=== PATIENT | female | born 1995 | race Caucasian/White ===

== ENCOUNTER → 2017-12-03 | Emergency (ER) | payer OTHER ==
[~2017-12-03] VITALS: Ht 157.5 cm; Wt 61.2 kg
== END | disposition home or self-care (01) ==
LOC: ER 20:30
DX: S62.524A Nondisplaced fracture of distal phalanx of right thumb, initial encounter for closed fracture (principal); W23.0XXA Caught, crushed, jammed, or pinched between moving objects, initial encounter; Y93.89 Activity, other specified; Y92.098 Other place in other non-institutional residence as the place of occurrence of the external cause; Y99.8 Other external cause status

== ENCOUNTER 2019-04-14 13:09 | Emergency (ER) | payer OTHER ==
[~2019-04-14] VITALS: Ht 165.1 cm; Wt 63.5 kg
== END 2019-04-14 21:31 | disposition home or self-care (01) ==
LOC: ER 13:09
DX: S50.11XA Contusion of right forearm, initial encounter (principal); W18.09XA Striking against other object with subsequent fall, initial encounter; Y93.89 Activity, other specified; Y92.89 Other specified places as the place of occurrence of the external cause; Y99.8 Other external cause status

== ENCOUNTER → 2020-01-23 | Outpatient (CLI) | payer OTHER | END | disposition home or self-care (01) | LOC: PRENATAL 11:00 | DX: O35.3XX1 Maternal care for (suspected) damage to fetus from viral disease in mother, fetus 1 (principal); O35.0XX1 Maternal care for (suspected) central nervous system malformation in fetus, fetus 1 ==

== ENCOUNTER → 2021-09-09 | Emergency (ER) | payer OTHER ==
[~2021-09-09] VITALS: Ht 160 cm; Wt 65.8 kg
== END | disposition home or self-care (01) ==
LOC: ER 16:42
DX: T78.40XA Allergy, unspecified, initial encounter (principal)

== ENCOUNTER 2025-02-24 17:19 | Outpatient (CLI) | payer OTHER ==
[~2025-02-24] VITALS: Ht 157.5 cm; Wt 83.5 kg
[2025-02-24 17:31] VITALS: BP 133/81
[2025-02-24] MEDS ORDERED: CHILDREN'S ASPI81 MG PO (17:41)
[2025-02-24] MEDS ORDERED: PRENATAL TABLE1 EAC4 PO (17:41)
[2025-02-24] MEDS ORDERED: RINGERS SOLUTION,LACTATED 1,000 ML IV SCH (17:45)
[2025-02-24 18:00] LABS: HEMATOCRIT 39.3 % (36.0-45.00); HEMOGLOBIN 13.8 g/dL (12.0-15.00); MEAN CELL VOLUME 88.8 fL (80.00-100.00); MEAN CORPUSCULAR HEMOGLOBIN 31.2 pg (27.00-32.0); MEAN CORPUSCULAR HGB CONC 35.2 g/dl (32.0-36.0); PLATELET COUNT 279 K/uL (150-450); RED BLOOD COUNT 4.42 M/uL (4.00-6.00); RED CELL DISTRIBUTION WIDTH 13.4 % (11.5-14.5)
[2025-02-24 18:01] LABS: URINE APPEARANCE Clear; URINE BILIRRUBIN Negative (NEGATIVE); URINE BLOOD Negative; URINE COLOR Yellow; URINE GLUCOSE Negative (NEGATIVE); URINE KETONE Negative (NEGATIVE); URINE LEUKOCYTE Trace; URINE NITRATE Negative; URINE PROTEIN Negative (NEGATIVE); URINE UROBILINOGEN 0.2 E.U./dl
[2025-02-24 18:04] LABS: URINE BACTERIA 1250.8 uL (0.0-1933); URINE EPITHELIAL CELLS 47.4 uL (0.0-38.8); URINE RBC 3.9 uL (0.0-20.8); URINE WBC 29.1 uL (0.0-23.2)
[2025-02-24 18:10] LABS: URINE CAST 0.14 uL (0.0-1.40)
[2025-02-24 18:17] LABS: INR 0.95; PARTIAL THROMBOPLASTIN TIME 27.6 SECONDS (22.0-34.0); PROTHROMBIN TIME 10.4 SECONDS (9.0-11.5)
[2025-02-24 18:21] LABS: ALBUMIN 3.2 gm/dL (3.4-5.0); BILIRUBIN TOTAL 0.24 mg/dL (0.3-1.2); CREATININE SERUM 0.44 mg/dL (0.55-1.02); GFR 170.26; GLOBULINA 3.6 G/DL (2.4-3.5); POTASSIUM 3.81 mEq/L (3.5-5.1); TOTAL PROTEIN 6.8 gm/dL (6.4-8.2)
[2025-02-24 20:00] VITALS: BP 131/87
[2025-02-24 23:41] VITALS: BP 115/73
[2025-02-25 03:14] VITALS: BP 126/86
[2025-02-25 06:33] VITALS: BP 117/84; O2SAT 98
[2025-02-25 11:48] VITALS: BP 126/84
[2025-02-25 15:20] VITALS: BP 123/65; O2SAT 98
[2025-02-25 18:12] LABS: URINE PROT QUANT 24HR 9.4 MG/DL
[2025-02-25 18:16] LABS: URINE PROT QUANT 24 HR 263.2 MG/24HR (42-225)
[2025-02-25 18:18] LABS: CREATINE CLEARANCE 177.9 ML/MIN (97-137); CREATININE SERUM 0.45 mg/dL (0.6-1.0)
[2025-02-25 19:00] VITALS: BP 123/65
== END 2025-02-25 19:00 | disposition home or self-care (01) ==
LOC: OBS/DEL 17:19
PROVIDERS: ATTEND Student in an Organized Health Care Education/Training Program
DX: O26.893 Other specified pregnancy related conditions, third trimester (principal); O13.3 Gestational [pregnancy-induced] hypertension without significant proteinuria, third trimester; Z3A.34 34 weeks gestation of pregnancy

== ENCOUNTER 2025-03-16 07:28 | Inpatient (IN) | payer OTHER ==
[~2025-03-16] VITALS: Ht 157.5 cm; Wt 83.5 kg
[~2025-03-16 07:28] MED LIST: CHILDREN'S ASPI81 MG PO; PRENATAL TABLE1 EAC4 PO
[2025-03-16 07:47] VITALS: BP 122/84
[2025-03-16] MEDS ORDERED: RINGERS SOLUTION,LACTATED 1,000 ML IV SCH (08:45)
[2025-03-16] MEDS ORDERED: OXYTOCIN 20 UNITS/500ML RL PIGGYBAG IV ONE (08:49)
[2025-03-16] MEDS ORDERED: OXYTOCIN 1,000 ML IV SCH ×2 (09:00→17:30)
[2025-03-16 09:25] LABS: URINE APPEARANCE Clear; URINE BILIRRUBIN Negative (NEGATIVE); URINE BLOOD Negative; URINE COLOR Yellow; URINE GLUCOSE Negative (NEGATIVE); URINE KETONE Negative (NEGATIVE); URINE LEUKOCYTE Negative; URINE NITRATE Negative; URINE PROTEIN Negative (NEGATIVE); URINE UROBILINOGEN 0.2 E.U./dl
[2025-03-16 09:26] LABS: HEMATOCRIT 40.7 % (36.0-45.00); HEMOGLOBIN 14.2 g/dL (12.0-15.00); MEAN CELL VOLUME 89.5 fL (80.00-100.00); MEAN CORPUSCULAR HEMOGLOBIN 31.1 pg (27.00-32.0); MEAN CORPUSCULAR HGB CONC 34.8 g/dl (32.0-36.0); PLATELET COUNT 222 K/uL (150-450); RED BLOOD COUNT 4.54 M/uL (4.00-6.00); RED CELL DISTRIBUTION WIDTH 13.7 % (11.5-14.5); URINE BACTERIA 362.2 uL (0.0-1933); URINE EPITHELIAL CELLS 15.1 uL (0.0-38.8); URINE RBC 2.5 uL (0.0-20.8)
[2025-03-16 10:52] LABS: INR 0.94; PARTIAL THROMBOPLASTIN TIME 26.4 SECONDS (22.0-34.0); PROTHROMBIN TIME 10.3 SECONDS (9.0-11.5)
[2025-03-16 10:57] LABS: ALBUMIN 3.3 gm/dL (3.4-5.0); BILIRUBIN TOTAL 0.28 mg/dL (0.3-1.2); CALCIUM 9.2 mg/dL (8.5-10.1); CREATININE SERUM 0.5 mg/dL (0.55-1.02); GFR 146.91; GLOBULINA 3.6 G/DL (2.4-3.5); POTASSIUM 3.96 mEq/L (3.5-5.1); TOTAL PROTEIN 6.9 gm/dL (6.4-8.2)
[2025-03-16 11:34] VITALS: BP 134/81; O2SAT 98
[2025-03-16 15:44] VITALS: BP 117/63
[2025-03-16] MEDS ORDERED: CEFAZOLIN SODIUM 1,000 MG VIAL ONE (15:50)
[2025-03-16] MEDS ORDERED: OXYTOCIN 10 UNITS/ML VIAL ONE ×2 (15:58→20:52)
[2025-03-16] MEDS ORDERED: ERYTHROMYCIN BASE OPHT 1GM EACH TUBE OP ONE (15:58)
[2025-03-16] MEDS ORDERED: CEFAZOLIN SODIUM 1,000 MG VIAL IV SCH (16:00)
[2025-03-16] MEDS ORDERED: KETOROLAC TROMETHAMINE 30 MG VIAL IV PRN (17:30)
[2025-03-16] MEDS ORDERED: PROMETHAZINE HCL 25 MG/ML AMPUL IV PRN (17:30)
[2025-03-16] MEDS ORDERED: MORPHINE SULFATE 4 MG/ML CARTRIDGE IV PRN (17:45)
[2025-03-16] MEDS ORDERED: KETOROLAC TROMETHAMINE 30 MG VIAL ONE (19:19)
[2025-03-16 21:46] VITALS: BP 128/78
[2025-03-16 22:04] LABS: HEMATOCRIT 37.3 % (36.0-45.00); HEMOGLOBIN 12.8 g/dL (12.0-15.00); MEAN CELL VOLUME 90.3 fL (80.00-100.00); MEAN CORPUSCULAR HEMOGLOBIN 31.1 pg (27.00-32.0); MEAN CORPUSCULAR HGB CONC 34.5 g/dl (32.0-36.0); PLATELET COUNT 203 K/uL (150-450); RED BLOOD COUNT 4.13 M/uL (4.00-6.00); RED CELL DISTRIBUTION WIDTH 13.7 % (11.5-14.5)
[2025-03-16 23:47] VITALS: BP 114/74
[2025-03-17 05:00] VITALS: BP 119/80
[2025-03-17] MEDS ORDERED: IBUprofen 800 MG TABLET PO PRN (07:00)
[2025-03-17] MEDS ORDERED: OxyCODONE HCL 5 MG TABLET (ROXICODONE) PO PRN (07:00)
[2025-03-17] MEDS ORDERED: ACETAMINOPHEN 325 MG TABLET PO PRN (07:00)
[2025-03-17] MEDS ORDERED: SIMETHICONE 125 MG CAPSULE PO SCH (09:00)
[2025-03-17] MEDS ORDERED: DOCUSATE SODIUM 100MG CAP PO SCH (09:00)
[2025-03-17 12:17] VITALS: BP 122/83
[2025-03-17 16:00] VITALS: BP 125/84
[2025-03-18 00:07] VITALS: BP 116/79
[2025-03-18 08:36] VITALS: BP 122/82
== END 2025-03-18 17:07 | disposition home or self-care (01) | DRG 788 ==
LOC: OB/GYN 07:28 → LDR 07:28 → O/R 16:56 → OB/GYN 18:50
PROVIDERS: ADMIT Student in an Organized Health Care Education/Training Program; ATTEND Student in an Organized Health Care Education/Training Program
PROC: 4A1HXCZ Monitoring of Products of Conception, Cardiac Rate, External Approach (ICD-10-PCS; 2025-03-16)
PROC: 10D00Z1 Extraction of Products of Conception, Low, Open Approach (ICD-10-PCS; principal; 2025-03-16 16:45)
DX: O66.40 Failed trial of labor, unspecified (principal); O34.211 Maternal care for low transverse scar from previous cesarean delivery; O11.4 Pre-existing hypertension with pre-eclampsia, complicating childbirth; O13.4 Gestational [pregnancy-induced] hypertension without significant proteinuria, complicating childbirth; Z3A.37 37 weeks gestation of pregnancy; Z37.0 Single live birth; Z20.822 Contact with and (suspected) exposure to COVID-19